=== PATIENT | female | born 1980 | race Two or more races ===

== ENCOUNTER 2024-12-09 18:32 | Emergency (ER) | payer OTHER ==
[~2024-12-09] VITALS: Ht 154.9 cm; Wt 123.8 kg
[2024-12-09] MEDS ORDERED: DEXAMETHASONE SODIUM PHOSPHATE 4 MG/ML VIAL ONE (21:09)
[2024-12-09] MEDS ORDERED: ORPHENADRINE CITRATE 30 MG/ML AMPUL ONE (21:09)
[2024-12-09] MEDS ORDERED: 8 HOUR650 MG PO (21:13)
[2024-12-09] MEDS ORDERED: NORFLEX100MG PO (21:13)
[2024-12-09] MEDS ORDERED: ORPHENADRINE CITRATE 30 MG/ML AMPUL IM ONE (21:15)
[2024-12-09] MEDS ORDERED: DEXAMETHASONE SODIUM PHOSPHATE 4 MG/ML VIAL IM ONE (21:15)
== END 2024-12-09 21:44 | disposition home or self-care (01) ==
LOC: ER 18:35
DX: M54.50 Low back pain, unspecified (principal)